=== PATIENT | male | born 1950 | race Caucasian/White ===

== ENCOUNTER 2016-11-22 18:33 | Emergency (ER) | payer MEDICARE, OTHER ==
[~2016-11-22] VITALS: Ht 175.3 cm; Wt 97.0 kg
[~2016-11-22 18:33] MED LIST: Z.0.NO CURRENT MEDS
[2016-11-22 18:47] VITALS: BP 180/96; PULSE 81; RESP 16; TEMP 100.5; O2SAT 97
[2016-11-22] MEDS ORDERED: AMLO5TAB2 PO (18:57)
[2016-11-22] MEDS ORDERED: LOSA100T PO (18:57)
--- NOTE | 2016-11-22 19:25 | PD ---
HPI Chief Complaint: Complaint Time Seen by Provider: 19:10 Travel History International Travel<30 days: No Contact w/Intl Traveler<30days: No History of Present Illness HPI 66-year-old male with a 1 day history of scrotal pain left greater than right. is with him during the interview. He was evaluated by a local urgent care just prior to arrival and they advised he come over to the emergency department for evaluation. States that he woke up with the pain has gradually gotten worse over the last day, described as achy and mild. Mild lower abdominal discomfort since the onset of this scrotal pain. States normally his left testicle is larger than his right but it has become more edematous and red. Denies urinary complaints, states no pain with ejaculation. states that he had a fever of 101 yesterday. States he took Motrin with mild relief of pain. Denies sexual activity with anyone except . Urinates 3x/night. PFSH Past Medical History Diminished Hearing: No Hypertension: Yes Immunizations Current: Yes Tetanus Vaccination: > 5 Years Influenza Vaccination: Yes Past Surgical History Surgical History: No Previous Surgery Social History Alcohol Use: Yes (BEER/WINE/LIQUOR, 4 daily) Tobacco Use: No Substance Use: No Allergies-Medications (Allergen,Severity, Reaction): Coded Allergies: No Known Allergies (Verified , 11/22/16) Reported Meds & Prescriptions Reported Meds & Active Scripts Active Levofloxacin 500 Mg Tablet 500 Mg PO DAILY 10 Days Reported Amlodipine (Amlodipine Besylate) 5 Mg Tab 5 Mg PO DAILY Losartan (Losartan Potassium) 100 Mg Tab 100 Mg PO DAILY Review of Systems Except as stated in HPI: all other systems reviewed are Neg General / Constitutional: Positive: Fever ( states 101) Physical Exam Narrative GENERAL: Well-developed well-nourished SKIN: Focused skin assessment warm/dry. HEAD: Atraumatic. Normocephalic. NECK: Trachea midline. No JVD. CARDIOVASCULAR: Regular rate and rhythm. No murmur appreciated. RESPIRATORY: No accessory muscle use. Clear to auscultation. Breath sounds equal bilaterally. GASTROINTESTINAL: Abdomen soft, non-tender, nondistended. Hepatic and splenic margins not palpable. MUSCULOSKELETAL: No obvious deformities. No clubbing. No cyanosis. No edema. No CVA tenderness GENITOURINARY: uncircumcised. Testes descended bilaterally without evidence of rotation, mildly erythematous. Left testicle size greater than right. No lesions or erythema. No blue dot sign. No urethral discharge. No hernia noted. Negative Prehn's sign. Negative TTP to testicles. NEUROLOGICAL: Awake and alert. No obvious cranial nerve deficits. Motor grossly within normal limits. Normal speech. PSYCHIATRIC: Appropriate mood and affect; insight and judgment normal. Data Data Last Documented VS Vital Signs Date Time Temp Pulse Resp B/P (MAP) Pulse Ox O2 Delivery O2 Flow Rate FiO2 11/22/16 18:47 100.5 81 16 180/96 (124) 97 Orders Orders Us Testicles W Doppler (11/22/16 ) Urinalysis - C+S If Indicated (11/22/16 19:27) Gc And Chlamydia Pcr (11/22/16 20:01) Levofloxacin (Levaquin) (11/22/16 21:00) Ed Discharge Order (11/22/16 20:55) Labs Laboratory Tests Test 11/22/16 19:30 Urine Color YELLOW Urine Turbidity CLEAR Urine pH 6.0 Urine Specific [place] 1.025 Urine Protein NEG mg/dL Urine Glucose (UA) NEG mg/dL Urine Ketones TRACE mg/dL Urine Occult Blood TRACE Urine Nitrite NEG Urine Bilirubin NEG Urine Leukocyte Esterase NEG Urine RBC 0-3 /hpf Urine WBC 0-2 /hpf Urine Squamous Epithelial Cells 0-5 /hpf Urine Bacteria NONE /hpf Microscopic Urinalysis Comment CULT NOT INDICATED MDM Medical Decision Making Medical Screen Exam Complete: Yes Emergency Medical Condition: Yes Differential Diagnosis Epididymitis versus testicular torsion versus orchitis Narrative Course 66-year-old male here with complaining of testicular pain for 1day. States he woke up this pain and denies any exacerbating events. He says nothing seems to make it worse or better. Denies dysuria or pain with ejaculation. Physical exam revealed negative blue dot sign, negative Prehn sign, no tenderness to palpation of scrotal tissue. Testicular ultrasound revealed small bilateral hydroceles and possibly orchitis. Diagnosed with epididymoorchitis. Prescribed Levaquin 500 mg 1 tab by mouth daily Advised follow-up with primary care physician and urologist Diagnosis Primary Impression: Epididymoorchitis Additional Instructions: Follow-up with the urologist and primary care physician for further treatment and evaluation If site becomes more enlarged, tender, swollen, return to emergency department for the treatment evaluation. Take all antibiotics as prescribed May use cool compresses for symptom relief.. Scripts Levofloxacin (Levofloxacin) 500 Mg Tablet 500 MG PO DAILY for Infection for 10 Days, #10 TAB 0 Refills Prov: Los Montoya MD 11/22/16 Disposition: 01 DISCHARGE HOME Condition: Stable Ellie Rios Nov 22, 2016 19:25
[2016-11-22 19:37] LABS: GLUCOSE,URINE NEG (NEG); KETONE, URINE TRACE mg/dL (NEG); NITRITE,URINE NEG (NEG)
[2016-11-22 19:43] LABS: BLOOD, URINE TRACE (NEG)
[2016-11-22 19:44] LABS: RBC, URINE 0-3 /hpf (0-3); URINE COLOR YELLOW (YELLW/STRAW); WBC, URINE 0-2 /hpf (0-5)
[2016-11-22 19:45] LABS: COMMENT (UR) CULT NOT INDICATED; CULTURE IF INDICATED CULT NOT INDICATED; SQUAMOUS EPITHELIAL CELL URINE 0-5 /hpf (0-5)
--- NOTE | 2016-11-22 20:31 | RADRPT ---
EXAM DATE/TIME: 11/22/2016 20:02 [facility] COMPARISON: No previous studies available for comparison. INDICATIONS : Testicular pain. MEDICAL HISTORY : Hypertension. Glasses. Alcohol use. SURGICAL HISTORY : ENCOUNTER: Initial ACUITY: 4 - 6 days PAIN SCORE: 5/10 LOCATION: Bilateral testicles. MEASUREMENTS: RIGHT TESTICLE: 3.9 x 2.5 x 1.9cm LEFT TESTICLE: 6.0 x 4.1 x 2.9cm FINDINGS: RIGHT TESTICLE: Homogeneous echotexture without intra or extratesticular mass. Blood flow is symmetric and within no rmal limits. No varicocele. Epididymis is within normal limits. Small hydrocele LEFT TESTICLE: Mildly heterogeneous echotexture without intra or extratesticular mass. It is appear to be some diffu se enlargement of the left testicle. Blood flow appears to be increased throughout the left testicle compared to the right.. No varicocele. Epididymis is within normal limits. Small hydrocele SCROTUM: Within normal limits. CONCLUSION: 1. There appears to be some diffuse enlargement of the left testicle with increased blood flow. Findi ng suggest an inflammatory process such as orchitis. Recommend correlation with patient's physical an d clinical exam. 2. There is blood flow to both testicles. 3. Small bilateral hydroceles. Julien Kaur MD on November 22, 2016 at 20:27 Board Certified Radiologist. This report was verified electronically.
[2016-11-22] MEDS ORDERED: LEVO500T8 PO (20:49)
[2016-11-22] MEDS ORDERED: LEVOFLOXACIN 500 MG TAB PO ONE (21:00)
[2016-11-22 21:04] VITALS: BP 180/90
[2016-11-23 02:50] LABS: CHLAMYDIA PCR NOT DETECTED (NOT DETECT); NEISSERIA PCR NOT DETECTED (NOT DETECT)
== END 2016-11-22 21:06 | disposition home or self-care (01) ==
LOC: PHEFT 18:33
DX: N45.3 Epididymo-orchitis (principal); I10 Essential (primary) hypertension
CPT/HCPCS: 76870; 81001; 87491; 87591; 93975; 99284